=== PATIENT | male | born 1975 | race Caucasian/White ===

== ENCOUNTER → 2023-10-02 06:38 | Day surgery (SDC) | payer OTHER, SELFPAY | LOC: GI 06:38 | PROVIDERS: ATTENDING PHYSICIAN Internal Medicine Gastroenterology | DX: R19.5 Other fecal abnormalities (principal); C18.7 Malignant neoplasm of sigmoid colon; D50.9 Iron deficiency anemia, unspecified; K56.691 Other complete intestinal obstruction; D49.0 Neoplasm of unspecified behavior of digestive system; K29.50 Unspecified chronic gastritis without bleeding | CPT/HCPCS: 45380; 45381; 43239; 88305; 88342 ==

== ENCOUNTER → 2023-10-05 14:25 | Outpatient (REF) | payer OTHER, SELFPAY | LOC: HWRAD 14:25 | PROVIDERS: ATTENDING PHYSICIAN Internal Medicine Gastroenterology; FAMILY PHYSICIAN Internal Medicine | DX: K63.89 Other specified diseases of intestine (principal) | CPT/HCPCS: 71260; 74177; Q9967 ==

== ENCOUNTER → 2023-10-28 08:40 | Outpatient (REF) | payer OTHER, SELFPAY | LOC: PAVMRI 08:40 | PROVIDERS: ATTENDING PHYSICIAN Internal Medicine Gastroenterology; FAMILY PHYSICIAN Internal Medicine | DX: C78.7 Secondary malignant neoplasm of liver and intrahepatic bile duct (principal) | CPT/HCPCS: 74183; A9575 ==

== ENCOUNTER → 2024-07-08 13:50 | Outpatient (REF) | payer OTHER, SELFPAY | LOC: DHSLP 13:50 | PROVIDERS: ATTENDING PHYSICIAN Internal Medicine Critical Care Medicine; FAMILY PHYSICIAN Internal Medicine | DX: G47.33 Obstructive sleep apnea (adult) (pediatric) (principal) | CPT/HCPCS: 95800 ==